=== PATIENT | female | born 1990 | race Caucasian/White ===

== ENCOUNTER → 2017-07-22 | Outpatient (CLI) | payer OTHER ==
[~2017-07-22] MED LIST: PRLSR20 PO
== END | disposition home or self-care (01) ==
LOC: C.PAPS 14:24
PROVIDERS: ATTEND Obstetrics & Gynecology
DX: Z12.4 Encounter for screening for malignant neoplasm of cervix (principal)

== ENCOUNTER → 2017-07-26 | Outpatient (CLI) | payer OTHER ==
[2017-07-26 13:13] LABS: FOLLICLE STIMULAT HORMONE 6.07 IU/L; LUTEINIZING HORMONE 8.66 IU/L; PROLACTIN 5.31 ng/mL; THYROXINE (T4) 6.2 mcg/dl (4.5-10.9)
== END | disposition home or self-care (01) ==
LOC: C.LAB1850 10:50
PROVIDERS: ATTEND Obstetrics & Gynecology
DX: N91.5 Oligomenorrhea, unspecified (principal)